=== PATIENT | female | born 1965 | race Asian ===

== ENCOUNTER 2017-02-22 08:25 | Day surgery (SDC) | payer BC ==
[~2017-02-22] VITALS: Ht 175.3 cm; Wt 69.4 kg
[2017-02-22] MEDS ORDERED: SEVOFLURANE 15 MIN GAS INH ONE (08:26)
[2017-02-22] MEDS ORDERED: DEXAMETHASONE SOD PHOSPHATE 4 MG/ML VIAL IVP ONE (08:26)
[2017-02-22] MEDS ORDERED: PROPOFOL 200MG/ 20ML VIAL (DIPRIVAN) IV ONE (08:26)
[2017-02-22] MEDS ORDERED: fentaNYL CITRATE/PF 100 MCG/2 ML AMP IVP ONE (08:26)
[2017-02-22] MEDS ORDERED: MIDAZOLAM HCL 5 MG/ML VIAL (VERSED) IV ONE (08:26)
[2017-02-22] MEDS ORDERED: METOCLOPRAMIDE HCL 10 MG/2 ML VIAL IVP ONE (08:26)
[2017-02-22] MEDS ORDERED: LR 1,000 ML IV.SOLN IV ONE (08:26)
[2017-02-22] MEDS ORDERED: NS 1000 ML BAG IV ONE (08:26)
[2017-02-22 09:28] VITALS: O2SAT 99
[2017-02-22] MEDS ORDERED: LR 1,000 ML IV ONE (10:16)
[2017-02-22] MEDS ORDERED: ONDANSETRON HCL 4 MG/2 ML VIAL IVP PRN ×3 (10:30→10:45)
[2017-02-22] MEDS ORDERED: NALBUPHINE HCL 10 MG/ML AMP IVP PRN (10:30)
[2017-02-22] MEDS ORDERED: ePHEDrine sulfate 50 MG/ML VIAL IVP PRN (10:30)
[2017-02-22] MEDS ORDERED: fentaNYL CITRATE/PF 100 MCG/2 ML AMP IVP PRN (10:30)
[2017-02-22] MEDS ORDERED: NALOXONE HCL 0.4 MG/ML AMP (NARCAN) IVP PRN (10:30)
[2017-02-22] MEDS ORDERED: DIPHENHYDRAMINE INJ 50 MG/ML VIAL IVP PRN (10:30)
[2017-02-22] MEDS ORDERED: PROMETHAZINE HCL 25 MG/ML AMP IM PRN ×2 (10:45)
[2017-02-22] MEDS ORDERED: OXYCODONE/ACETAMINOPHEN 5-325 TABLET PO PRN ×2 (10:45)
[2017-02-22] MEDS ORDERED: fentaNYL CITRATE/PF 100 MCG/2 ML AMP ONE (11:15)
[2017-02-22 11:44] VITALS: BP 111/64; PULSE 61; RESP 12
== END 2017-02-22 13:15 | disposition home or self-care (01) ==
LOC: SDS 08:25 → SMU 08:25 → SDS 13:15
PROVIDERS: ATTEND Obstetrics & Gynecology
DX: D26.1 Other benign neoplasm of corpus uteri (principal); D25.9 Leiomyoma of uterus, unspecified; E03.9 Hypothyroidism, unspecified; D50.0 Iron deficiency anemia secondary to blood loss (chronic); G43.909 Migraine, unspecified, not intractable, without status migrainosus; Z88.8 Allergy status to other drugs, medicaments and biological substances; Z79.899 Other long term (current) drug therapy; F41.9 Anxiety disorder, unspecified
CPT/HCPCS: 36415; 58563; 86886; 86900; 86901; 88305; J1100; J2250; J2704; J2765; J3010; J7030; J7120